=== PATIENT | female | born 1990 | race Caucasian/White ===

== ENCOUNTER 2018-06-19 13:46 | Emergency (ER) | payer SELFPAY, OTHER ==
[2018-06-19] MEDS: IBUPROFEN 800 MG TAB PO (14:45)
== END 2018-06-19 16:16 | disposition home or self-care (01) ==
LOC: FTE 13:46
DX: S16.1XXA Strain of muscle, fascia and tendon at neck level, initial encounter (principal); S69.92XA Unspecified injury of left wrist, hand and finger(s), initial encounter; S39.92XA Unspecified injury of lower back, initial encounter; V49.10XA Passenger injured in collision with unspecified motor vehicles in nontraffic accident, initial encounter
CPT/HCPCS: 72040; 72072; 72100; 73110-LT; 81025; 99284-25